=== PATIENT | female | born 1960 | race Caucasian/White ===

== ENCOUNTER → 2016-12-07 | Outpatient (CLI) | payer BC ==
[~2016-12-07] MED LIST: BUPR100T6 PO; METO50TA82 PO; MULT-208 PO; OMEG300C PO
== END | disposition home or self-care (01) ==
LOC: CVU 12:43
PROVIDERS: ATTEND Internal Medicine Cardiovascular Disease
DX: I34.0 Nonrheumatic mitral (valve) insufficiency (principal); Z87.891 Personal history of nicotine dependence
CPT/HCPCS: 93306